=== PATIENT | female | born 1960 | race American Indian/Alaskan Native ===

== ENCOUNTER 2017-06-15 08:45 | Outpatient (CLI) | payer OTHER ==
--- NOTE | 2017-06-15 15:43 | Mammography Report ---
BILATERAL DIGITAL SCREENING MAMMOGRAM with CAD: 06/15/17 08:45:00 CLINICAL: Routine screening. COMPARISON:None. FINDINGS: There are bilateral scattered areas of fibroglandular density. A left asymmetry on the CC view requires additional imaging. No architectural distortion or suspicious calcifications.The right breast is negative. IMPRESSION: Left asymmetry requiring further workup. BI-RADS CATEGORY: 0 -- Additional Imaging Evaluation Required RECOMMENDATION: Recall for left mediolateral and spot magnification CC views and left breast ultrasound if needed. ACR BI-RADS MAMMOGRAPHIC CODES: 0 = Needs additional imaging evaluation; 1 = Negative; 2 = Benign; 3 = Probably benign; 4 = Suspicious; 5 = Malignant; 6 = Known biopsy-proven malignancy COMMENT: 1. Dense breast tissue, i.e., adenosis, fibrocystic changes, etc., may obscure an underlying neoplasm. 2. Approximately 10% of cancers are not detected with mammography. 3. A negative mammography report should not delay biopsy if a clinically suspicious mass is present. COMMENT: Patient follow-up letters are generated via our [employer] application.
== END 2017-06-15 08:46 | disposition home or self-care (01) ==
LOC: SPVWC 08:45
PROVIDERS: ATTEND Internal Medicine
DX: Z12.31 Encounter for screening mammogram for malignant neoplasm of breast (principal)
CPT/HCPCS: 77067; G0202

== ENCOUNTER 2017-12-05 09:26 | Outpatient (CLI) | payer OTHER ==
--- NOTE | 2017-12-05 12:53 | XRay Report ---
XRAY CHEST TWO VIEWS: 12/05/17 09:26:00 CLINICAL: Cough.Asthmatic bronchitis. COMPARISON: 01/12/10 FINDINGS: Normal heart and pulmonary vasculature. The lungs are normally expanded and clear. No airspace disease or pleural effusion. The bones and soft tissues are normal. IMPRESSION: Normal chest.No acute cardiopulmonary process.
== END 2017-12-05 09:27 | disposition home or self-care (01) ==
LOC: SPVIMAG 09:26
PROVIDERS: ATTEND Internal Medicine
DX: J45.909 Unspecified asthma, uncomplicated (principal)
CPT/HCPCS: 71046

== ENCOUNTER 2019-02-21 14:20 | Outpatient (CLI) | payer OTHER ==
--- NOTE | 2019-02-21 15:59 | Cat Scan Report ---
PROCEDURE: CT HEAD/BRAIN WO CON TECHNIQUE: Computerized tomography of the head was performed without contrast material. CT DOSE LENGTH PRODUCT: 805.4 mGycm HISTORY: TRANSIENT CEREBRAL ISCHEMIA UNSPECIFIED TYPE COMPARISONS: None . FINDINGS: Nonspecific scattered opacity in the inferior mastoid air cells bilaterally. Suggestion of tiny fluid level on the right. Bone windows demonstrate no acute fracture. The brain is without mass, mass effect, hemorrhage, or acute infarct. There is no extra-axial intracranial bleed, brain bleed, or midline shift. The ventricles and sulci are age-appropriate. IMPRESSION: No acute CVA, intracranial bleed, or brain mass Scattered slight mucosal thickening inferior mastoid air cells bilaterally may reflect eustachian tub e dysfunction. Differential includes mastoiditis This document is electronically signed by Kojo Nguyễn MD., February 21 2019 03:57:01 PM ET
== END 2019-02-21 14:21 | disposition home or self-care (01) ==
LOC: CT 14:20
PROVIDERS: ATTEND Internal Medicine
DX: I61.9 Nontraumatic intracerebral hemorrhage, unspecified (principal); H70.90 Unspecified mastoiditis, unspecified ear
CPT/HCPCS: 70450

== ENCOUNTER 2019-08-11 16:09 | Outpatient (CLI) | payer OTHER ==
--- NOTE | 2019-08-13 08:25 | Mammography Report ---
DIGITAL SCREENING MAMMOGRAM WITH CAD, 08/11/2019 INDICATION: Routine screening mammography. TECHNIQUE: Digital bilateral 2D mammography was obtained in the craniocaudal and mediolateral obliq ue projections. This examination was interpreted with the benefit of Computer-Aided Detection analysi s. COMPARISON: 08/05/2018 FINDINGS: Breast Density: There are scattered areas of fibroglandular density. There is no evidence of dominant mass, suspicious calcifications or architectural distortion in eithe r breast. IMPRESSION: No mammographic evidence of malignancy. Follow up recommendation: Routine yearly BI-RADS Category 1: Negative. A "normal" or negative report should not discourage follow up or biopsy of a clinically significant f inding. A written summary of these findings will be mailed to the patient. The patient will be entered into a mammography reporting system which will generate a reminder letter for the patient's next appointmen t at the appropriate interval. The [employer] recommends yearly mammograms starting at age 40 and continuing as l mary as a woman is in good health. Breast MRI is recommended for women with an approximate 20-25% or greater lifetime risk of breast cancer, including women with a strong family history of breast or ova ochoa cancer or who have been treated for Hodgkin's disease. Signer Name: Tim Meraz MD Signed: 08/13/2019 8:21 AM Workstation Name: [id number]
== END 2019-08-11 16:10 | disposition home or self-care (01) ==
LOC: SPVWC 16:09
PROVIDERS: ATTEND Internal Medicine
DX: Z12.31 Encounter for screening mammogram for malignant neoplasm of breast (principal); Z88.1 Allergy status to other antibiotic agents; Z88.8 Allergy status to other drugs, medicaments and biological substances
CPT/HCPCS: 77067

== ENCOUNTER 2020-08-24 14:29 | Outpatient (CLI) | payer OTHER ==
--- NOTE | 2020-08-25 15:43 | Mammography Report ---
BILATERAL DIGITAL SCREENING MAMMOGRAM WITH CAD HISTORY: Screening mammogram. TECHNIQUE: Routine digital mammographic imaging performed. This examination was interpreted with michelle ni benefit of Computer-aided Detection analysis. COMPARISON: 08/11/2019, 08/05/2018, 06/15/2017. FINDINGS: Breast Density: scattered fibroglandular appearance of the breast tissue. Digital CC and MLO views demonstrate no mammographic evidence of malignancy. Benign-appearing calcif ications are noted in both breasts. IMPRESSION: No mammographic evidence of malignancy. If the clinical examination remains stable, recommend bilate ral mammogram in approximately one year. BIRADS 2: Benign Finding(s). FURTHER INFORMATION: According to the [employer], yearly mammograms are recommend ed starting at age 40 and continuing as long as a woman is in good health. Clinical Breast Exams shou ld be part of a periodic health exam-about every 3 years for women in their 20s and 30s and every yea r for women 40 and over. Breast self exam is an option for women starting in their 20s. Any breast ch deena noted on a breast self exam should be reported promptly to the patient's healthcare provider. Br east MRI is recommended for women with an approximately 20-25% or greater lifetime risk of breast can cer, including women with a strong family history of breast or ovarian cancer and women who have been treated for Hodgkin's disease. A negative Mammography report should not discourage follow up or biopsy of a clinically significant f inding and/or abnormality. Dense breast tissue may obscure small neoplasms. The patient will be entered into a reminder system with a target due date for the next screening mamm ogram. Signer Name: Maykel Thomas MD Signed: 08/25/2020 3:39 PM Workstation Name: [id number]
== END 2020-08-24 14:30 | disposition home or self-care (01) ==
LOC: SPVWC 14:29
PROVIDERS: ATTEND Internal Medicine
DX: Z12.31 Encounter for screening mammogram for malignant neoplasm of breast (principal)
CPT/HCPCS: 77067

== ENCOUNTER 2021-08-26 09:37 | Outpatient (CLI) | payer OTHER | END 2021-08-26 09:38 | disposition home or self-care (01) | LOC: SPVWC 09:37 | PROVIDERS: ATTEND Internal Medicine | DX: Z12.31 Encounter for screening mammogram for malignant neoplasm of breast (principal) | CPT/HCPCS: 77067 ==